=== PATIENT | female | born 1975 | race Caucasian/White ===

== ENCOUNTER 2017-03-28 09:46 | Inpatient (IN) ==
[2017-03-28 10:38] LABS: Basophils % 0.6 %; Eosinophils # 0.2 K/mcL (0.0-0.6); Hematocrit 42.5 % (35.3-44.9); Hemoglobin 14.4 g/dL (11.5-15.4); Immature Granulocytes % 0.3 % (0-4); Lymphocytes # 1.8 K/mcL (0.6-4.6); Lymphocytes % 28.6 %; Mean Corpuscular HGB Conc 33.9 g/dL (31.6-35.5); Mean Corpuscular Hemoglobin 32.5 pg (28.0-33.3); Mean Corpuscular Volume 95.9 fL (83.0-100.0); Mean Platelet Volume 8.9 fL (9.4-12.4); Monocytes # 0.5 K/mcL (0.0-1.3); Monocytes % 8.1 %; Neutrophils # 3.8 K/mcL (1.6-8.9); Platelet Count 310 K/mcL (140-400); Red Blood Count 4.43 M/mcL (3.82-4.97); Red Cell Distribution Width 12.2 % (11.5-14.5); Segmented Neutrophils % 59.4 %
--- NOTE | 2017-03-28 10:55 | Emergency Department Note ---
Disposition Clinical Impression: Hallucinations, Positive urine drug screen Disposition: Admitted As Inpatient Condition: Good Referrals: NONE,PCP [Primary Care Provider] - Forms: ED Satisfaction Letter Psych HPI - General Chief Complaint: ED Psychiatric Symptoms Stated Complaint: psych eval Time Seen by Provider: 03/28/17 09:48 Source: patient, EMS Mode of arrival: EMS Limitations: language barrier Nursing Notes Reviewed: Yes Vital Signs Reviewed: Yes - History of Present Illness HPI Narrative: 42-year-old female presents to the ER via EMS for psychiatric evaluation. I introduced myself to the patient. She really will not speak to me. She makes poor eye contact. Reviewing the triage note she recently had medication changes and wanted to come here today to be evaluated. She denies any suicidal or homicidal ideations when I question her. She does shake her head yes whenever I asked about auditory and visual hallucinations. She then would not look at me anymore or answer any questions during my history taking. Pt complaint: other Onset (ago): unknown Context: new medication(s) Alleged intoxication: No Associated Psychiatric Symptoms: other Self harm or harm to others: denies thoughts of harming self/others - Related Data Home Medications Medication Instructions Recorded Confirmed Albuterol Sulfate [Ventolin Hfa] 2 puff IH Q4-6H PRN 11/14/16 03/28/17 Fluticasone/Vilanterol [Breo 1 puff IH DAILY 11/14/16 03/28/17 Ellipta 100-25 Mcg INH] Allergies Allergy/AdvReac Type Severity Reaction Status Date / Time No Known Allergies Allergy Verified 02/21/17 20:45 All systems ED: reviewed and negative except as stated. Psychiatric: Reports: auditory hallucinations, visual hallucinations. Denies: anxiety, depression, suicidal thoughts, homicidal thoughts Past Medical History - Past Medical History Attestation: Yes The following information was validated with the patient. Source: old records reviewed Medical history: Reports: COPD, hyperlipidemia, hypertension Surgical history: Reports: no surgical history Psychiatric history: Reports: anxiety, depression [employer] DISP[employer]ER history: Reports: non-contributory - Social History Smoking Status: Current every day smoker Smokeless Tobacco Status: No Alcohol use: Reports: occasionally Drug use: Reports: marijuana Physical Exam - General Limitations: no limitations General appearance: alert, in no apparent distress - Head Head exam: atraumatic, normocephalic - Eye Eye exam: Present: normal appearance - ENT ENT exam: normal exam - Neck Neck exam: Present: normal inspection - Chest Chest inspection: Present: normal inspection, symmetric chest wall rise - Respiratory Respiratory exam: Present: normal lung sounds bilaterally - Cardiovascular Cardiovascular exam: Present: regular rate, normal rhythm, normal heart sounds - Abdominal Exam Abdominal exam: Present: soft, Non-Tender. Absent: tenderness - Extremities Exam Extremities exam: Present: normal inspection, full ROM - Expanded Upper Extremity Exam Shoulder exam: Present: normal inspection, full ROM Arm exam: Present: normal inspection, full ROM Elbow exam: Present: normal inspection, full ROM Forearm/Wrist exam: Present: normal inspection, full ROM Hand exam: Present: normal inspection, full ROM - Expanded Lower Extremity Exam Hip/Pelvis exam: Present: normal inspection, full ROM Upper leg exam: Present: normal inspection, full ROM Knee exam: Present: normal inspection, full ROM Lower leg exam: Present: normal inspection, full ROM Ankle exam: Present: normal inspection, full ROM Foot/toe exam: Present: normal inspection, full ROM - Neurological Exam Neurological exam: Present: alert - Psychiatric Psychiatric exam: Present: flat affect - Expanded Psychiatric Exam Expanded psych exam: Present: poor eye contact, refuses to answer - Skin Skin exam: Present: warm, dry Course Course Narrative: Patient seen and examined. She is uncooperative with my exam. We will get labs for psychiatric clearance for evaluation. - Reevaluation(s) Reevaluation #1: Patient evaluated by psychiatric service. They are concerned for potential benzo withdrawal. He recommended admission to the hospitalist service with transferred to [place] [id number] tomorrow. Vital Signs Temperature 98.5 F 03/28/17 09:49 Pulse Rate 86 03/28/17 09:49 Respiratory Rate 15 03/28/17 09:49 Blood Pressure 125/85 03/28/17 09:49 O2 Sat by Pulse Oximetry 96 03/28/17 09:49 Temperature 98.5 F 03/28/17 09:49 Pulse Rate 82 03/28/17 17:07 Respiratory Rate 18 03/28/17 12:19 Blood Pressure 108/77 03/28/17 17:07 O2 Sat by Pulse Oximetry 98 03/28/17 17:07 Oxygen Delivery Oxygen Delivery Room Air Psych - MDM Narrative Medical decision making narrative: 42-year-old female presents to the ER due to hallucinations. She will not speak to me in the room. She was evaluated by the psychiatric team here. They recommended medical admission due to concern for potential benzo withdrawal. She is accepted to the hospitalist service exam to be transferred tomorrow after observation. - Lab Data Lab results reviewed: Yes I reviewed the patient's lab results. Result diagrams: 03/28/17 10:30 03/28/17 10:30 Lab Results 03/28/17 03/28/17 03/28/17 Range/Units 10:30 10:30 11:59 WBC 6.4 (4.3-11.1) K/mcL RBC 4.43 (3.82-4.97) M/mcL Hgb 14.4 (11.5-15.4) g/dL Hct 42.5 (35.3-44.9) % MCV 95.9 (83.0-100.0) fL MCH 32.5 (28.0-33.3) pg MCHC 33.9 (31.6-35.5) g/dL RDW 12.2 (11.5-14.5) % Plt Count 310 (140-400) K/mcL MPV 8.9 L (9.4-12.4) fL Immature Gran % 0.3 (0-4) % Seg Neutrophils % 59.4 % Lymphocytes % 28.6 % Monocytes % 8.1 % Eosinophils % 3.0 % Basophils % 0.6 % Neutrophils # 3.8 (1.6-8.9) K/mcL Lymphocytes # 1.8 (0.6-4.6) K/mcL Monocytes # 0.5 (0.0-1.3) K/mcL Eosinophils # 0.2 (0.0-0.6) K/mcL Basophils # 0.0 (0.0-0.2) K/mcL Sodium 136 (136-145) mEq/L Potassium 4.0 (3.5-5.1) mEq/L Chloride 101 (98-107) mEq/L Carbon Dioxide 28 (23-29) mEq/L BUN 11 (6-20) mg/dL Creatinine 0.64 (0.60-1.20) mg/dL Est GFR ( Amer) > 60 (> 60) Est GFR (Non-Af Amer) > 60 (> 60) BUN/Creatinine Ratio 17 (6-26) Glucose 91 (70-105) mg/dL Calculated Osmolality 281 (280-300) Calcium 9.9 (8.6-10.3) mg/dL Urine Color Yellow (Yellow) Urine Clarity Clear (Clear) Urine pH 6.5 (5.0-8.0) pH Units Ur Specific [place] 1.017 (1.010-1.025) Urine Protein Negative (Neg-Trace) mg/dL Urine Glucose (UA) Normal (Normal) mg/dL Urine Ketones Negative (Negative) mg/dL Urine Blood Negative (Negative) Urine Nitrite Negative (Negative) Urine Bilirubin Negative (Negative) Urine Urobilinogen Normal (Normal) mg/dL Ur Leukocyte Esterase Negative (Negative) Salicylates < 5.0 L (15.0-30.0) mg/dL Urine Opiates Screen (Lzpktz=977) ng/mL Acetaminophen < 1.0 L (10-30) mcg/mL Ur Barbiturates Screen (Iirggi=568) ng/mL Ur Phencyclidine Scrn (Cutoff=25) ng/mL Ur Amphetamines Screen (Mntgws=8699) ng/mL U Benzodiazepines Scrn (Ajmewv=706) ng/mL Urine Cocaine Screen (Cutoff= 300) ng/mL U Marijuana (THC) Screen (Cutoff = 50) ng/mL Ethyl Alcohol < 10 (0-10) mg/dL 03/28/17 Range/Units 11:59 WBC (4.3-11.1) K/mcL RBC (3.82-4.97) M/mcL Hgb (11.5-15.4) g/dL Hct (35.3-44.9) % MCV (83.0-100.0) fL MCH (28.0-33.3) pg MCHC (31.6-35.5) g/dL RDW (11.5-14.5) % Plt Count (140-400) K/mcL MPV (9.4-12.4) fL Immature Gran % (0-4) % Seg Neutrophils % % Lymphocytes % % Monocytes % % Eosinophils % % Basophils % % Neutrophils # (1.6-8.9) K/mcL Lymphocytes # (0.6-4.6) K/mcL Monocytes # (0.0-1.3) K/mcL Eosinophils # (0.0-0.6) K/mcL Basophils # (0.0-0.2) K/mcL Sodium (136-145) mEq/L Potassium (3.5-5.1) mEq/L Chloride (98-107) mEq/L Carbon Dioxide (23-29) mEq/L BUN (6-20) mg/dL Creatinine (0.60-1.20) mg/dL Est GFR ( Amer) (> 60) Est GFR (Non-Af Amer) (> 60) BUN/Creatinine Ratio (6-26) Glucose (70-105) mg/dL Calculated Osmolality (280-300) Calcium (8.6-10.3) mg/dL Urine Color (Yellow) Urine Clarity (Clear) Urine pH (5.0-8.0) pH Units Ur Specific [place] (1.010-1.025) Urine Protein (Neg-Trace) mg/dL Urine Glucose (UA) (Normal) mg/dL Urine Ketones (Negative) mg/dL Urine Blood (Negative) Urine Nitrite (Negative) Urine Bilirubin (Negative) Urine Urobilinogen (Normal) mg/dL Ur Leukocyte Esterase (Negative) Salicylates (15.0-30.0) mg/dL Urine Opiates Screen Negative (Jyhoju=337) ng/mL Acetaminophen (10-30) mcg/mL Ur Barbiturates Screen Negative (Tssdgf=534) ng/mL Ur Phencyclidine Scrn Negative (Cutoff=25) ng/mL Ur Amphetamines Screen Negative (Xwugtc=5125) ng/mL U Benzodiazepines Scrn Positive H (Fqvfkk=002) ng/mL Urine Cocaine Screen Negative (Cutoff= 300) ng/mL U Marijuana (THC) Screen Negative (Cutoff = 50) ng/mL Ethyl Alcohol (0-10) mg/dL Psychiatric Medical Clearance - Medical Clearance Checklist Medical History: Anxiety (Inactive) No Social History Section defined Current Vitals: Last Vital Signs Temp 98.5 F 03/28/17 09:49 Pulse 82 03/28/17 17:07 Resp 18 03/28/17 12:19 BP 108/77 03/28/17 17:07 Pulse Ox 98 03/28/17 17:07 Psychiatric Lab Panel: Drug Levels and Toxicity 03/28/17 03/28/17 10:30 11:59 Urine Opiates Screen Negative Acetaminophen < 1.0 L Ur Barbiturates Screen Negative Ur Phencyclidine Scrn Negative Ur Amphetamines Screen Negative U Benzodiazepines Scrn Positive H Urine Cocaine Screen Negative U Marijuana (THC) Screen Negative Ethyl Alcohol < 10 Abnormal Labs: Abnormal lab results MPV 8.9 fL (9.4-12.4) L 03/28/17 10:30 Salicylates < 5.0 mg/dL (15.0-30.0) L 03/28/17 10:30 Acetaminophen < 1.0 mcg/mL (10-30) L 03/28/17 10:30 U Benzodiazepines Scrn Positive ng/mL (Qtlzlc=209) H 03/28/17 11:59 Statement of Medical Clearance: I have evaluated the patient, reviewed diagnostic information, and certify that the patient's medical condition is sufficiently stable that transfer to the psychiatric unit does not pose a significant risk of deterioration. S.B.AАлександр - Deangelo Situation: Demographics, MOA Background: Presenting Complaint, Relevant PMH, Meds, & Allergies Assessment: Course and respsone to treatment, Exam Concerns, Patient/Family Expectation, Pertinant Lab Results Recommendation: Barrier(s) to disposition, Recommendation based on pending studies, treatments, or consults S.B.Donis Report Given to: Shira Bright Repor Time: 17:40 Attestation Statement - Attestation Attestation: I examined this patient and my medical decision-making was reviewed with the Resident Physician. I agree with the documented findings, disposition and treatment plan as described except to the extent set forth below. Makes fair eye contact for me. Complains of visual hallucinations. [facility] Denies any thoughts of self- harm, no command hallucinations. Awaiting 1a eval.
[2017-03-28 10:56] LABS: Acetaminophen < 1.0 mcg/mL (10-30); Ethanol < 10 mg/dL (0-10); Salicylate < 5.0 mg/dL (15.0-30.0)
[2017-03-28 10:57] LABS: BUN/Creatinine Ratio 17 (6-26); Blood Urea Nitrogen 11 mg/dL (6-20); Calcium 9.9 mg/dL (8.6-10.3); Carbon Dioxide 28 mEq/L (23-29); Chloride 101 mEq/L (98-107); Glucose 91 mg/dL (70-105); Osmolality,Calculated 281 (280-300); Sodium 136 mEq/L (136-145); eGFR For African Americans > 60 (> 60); eGFR For Non-African Americans > 60 (> 60)
[2017-03-28 12:08] LABS: Bilirubin,Urine Negative (Negative); Blood,Urine Negative (Negative); Clarity,Urine Clear (Clear); Color,Urine Yellow (Yellow); Glucose,Urine (UA) Normal (Normal); Ketones,Urine Negative (Negative); Leukocyte Esterase,Urine Negative (Negative); Nitrite,Urine Negative (Negative); PH,Urine 6.5 pH Units (5.0-8.0); Protein,Urine Negative (Neg-Trace); Specific Gravity,Urine 1.017 (1.010-1.025); Urobilinogen,Urine Normal (Normal)
[2017-03-28 12:14] LABS: Amphetamine Screen,Urine Negative ng/mL (Cutoff=1000); Barbiturate Screen,Urine Negative ng/mL (Cutoff=200); Benzodiazepines Screen,Urine Positive ng/mL (Cutoff=200); Cannabinoid Screen,Urine Negative ng/mL (Cutoff = 50); Cocaine Screen,Urine Negative ng/mL (Cutoff= 300); Opiate Screen,Urine Negative ng/mL (Cutoff=300); Phencyclidine Screen,Urine Negative ng/mL (Cutoff=25)
--- NOTE | 2017-03-28 17:50 | Internal Med History&Physical ---
Date of Encounter: 03/28/17 Time of Encounter: 17:49 Assessment and Plan (1) Hallucinations Current visit: No Status: Acute Resolved now Continue sitter Appreciate Psych consult Transfer to [facility] in am if no withdrawal sx Code(s): R44.3 - Hallucinations, unspecified (2) Positive urine drug screen Current visit: Yes Status: Acute Positive UDS for BDZ and confession she's been taking borrowed pills Concern for BDZ withdrawal Code(s): R82.5 - Elevated urine levels of drugs, medicaments and biological substances (3) HTN (hypertension) Current visit: Yes Status: Acute Qualifiers: Hypertension type: essential hypertension Qualified Code(s): I10 - Essential (primary) hypertension Code(s): I10 - Essential (primary) hypertension (4) Anxiety and depression [facility] visit: Yes [facility] Internal Medicine - H&P: HPI Admitted From: Emergency Dept Plans for Post Hospital Care: Transfer Psych Facility History of present illness: 42 year old female patient with extensive psych history recently released from [facility] and brought to [facility] ER today with reported hallucinations. She was apparently just released days ago from [facility] for the same reason. She is hemodynamically stable, afebrile with a normal WBC and no signs of acute illness. She was evaluated by pyschiatry while still in the ER and per psychiatry recommendations will be transfered back to [facility] psych departme after a period of observation for potential BDZ withdrawal. Her UDS was negative accept for BDZ and she does not have an RX for BDZs. She denies SI /HI ideations. She was reportedly having hallucinations (visual/auditory ??) earlier but denies this now. Her Lab work is wnl and ETOH, Acetaminophen, Salyilate levels are normal. Her other comorbid conditions are severe depression and anxiety, essential HTN and dyslipidemia. Past Med Surg Social Fam HX - Past Medical History Medical history: COPD, hyperlipidemia, hypertension Psychiatric history: anxiety, depression - Past Surgical History Surgical History: no surgical history - Social History Smoking Status: Current every day smoker Smokeless Tobacco Status: No Alcohol use: occasionally Drug use: marijuana Internal Medicine - H&P: Meds Albuterol Sulfate [Ventolin Hfa] 2 puff IH Q4-6H PRN 11/14/16 [History] Fluticasone/Vilanterol [Breo Ellipta 100-25 Mcg INH] 1 puff IH DAILY 11/14/16 [ History] 3 Allergy/AdvReac Type Severity Reaction Status Date / Time No Known Allergies Allergy Verified 02/21/17 20:45 All Systems PM: A 10-system review of systems was performed and is negative for pertinent findings except as documented above in the HPI. - Constitutional Constitutional: no chills, no fatigue, no fever(s), no night sweats, no weakness - EENT Eyes: no change in vision, no discharge, no pain, no photophobia Ears: ear discharge, ear pain Nose, mouth and throat: no bleeding gums, no dry mouth, no dysphagia, no epistaxis, no nasal discharge, no neck pain, no sore throat - Cardiovascular Cardiovascular ROS IM: no chest pain, no diaphoresis, no dyspnea, no lightheadedness, no palpitations, no syncope - Respiratory Respiratory: no cough, no dyspnea, no wheezing, no excessive phlegm production - Gastrointestinal Gastrointestinal: no abdominal pain, no diarrhea, no hematemesis, no hematochezia, no loose stools, no melena, no nausea, no vomiting - Genitourinary Genitourinary: no change in urinary stream, no dysuria, no flank pain, no hematuria, no urinary hesitancy, no urinary incontinence, no urinary urgency - Musculoskeletal Musculoskeletal ROS IM: no muscle cramps, no muscle weakness, no neck pain, no numbness, no tingling - Integumentary Integumentary IM: no rash, no unusual bruising, no jaundice - Neurological Neurological ROS: no confusion, no convulsions, no focal weakness, no numbness, no tingling, no tremor(s) - Psychiatric Psychiatric: anxiety, hallucinations, no homicidal ideation, no suicidal ideation - Constitutional Vitals: Temp Pulse Resp BP Pulse Ox 98.5 F 82 18 108/77 98 03/28/17 09:49 03/28/17 17:07 03/28/17 12:19 03/28/17 17:07 03/28/17 17:07 General appearance: Present: A&O X 3, pleasant, answers questions appropriately - Head Head exam: Present: atraumatic, normocephalic - Eye Eye exam: Present: EOMI, PERRL, conjuntiva pink, sclera anicteric. Absent: periorbital swelling, periorbital tenderness, scleral icterus Pupils: Present: PERRL. Absent: unequal - ENT ENT exam: Present: mucous membranes moist, normal exam - Neck Neck exam general surgery: Present: full ROM, supple, trachea midline. Absent: lymphadenopathy, normal inspection, tenderness, nuchal rigidity, thyromegaly - Respiratory Respiratory exam: Present: CTAB. Absent: decreased breath sounds, respiratory distress, stridor, wheezes, tachypnea - GI/Abdominal GI/Abdominal exam: Present: normal bowel sounds. Absent: guarding, hepatomegaly , rebound, tenderness, no peritoneal signs - Neurological Exam Neurological exam: Present: CN II-XII intact, no focal deficits. Absent: facial droop Internal Med - H&P Results - Labs CBC & Chem 7: 03/28/17 10:30 03/28/17 10:30 Labs: Short CBC 03/28/17 Range/Units 10:30 WBC 6.4 (4.3-11.1) K/mcL Hgb 14.4 (11.5-15.4) g/dL Hct 42.5 (35.3-44.9) % Plt Count 310 (140-400) K/mcL Neutrophils # 3.8 (1.6-8.9) K/mcL BMP 03/28/17 10:30 Sodium 136 Potassium 4.0 Chloride 101 Carbon Dioxide 28 BUN 11 Creatinine 0.64 Glucose 91 Calcium 9.9 Urine 03/28/17 Range/Units 11:59 Urine Color Yellow (Yellow) Urine Clarity Clear (Clear) Urine pH 6.5 (5.0-8.0) pH Units Ur Specific [place] 1.017 (1.010-1.025) Urine Protein Negative (Neg-Trace) mg/dL Urine Glucose (UA) Normal (Normal) mg/dL
[2017-03-28] MEDS ORDERED: *HR* LORazepam 0.5 MG TABLET PO PRN (18:27)
[2017-03-28] MEDS: diazePAM 5 MG TABLET PO SCH (21:38)
[2017-03-28] MEDS ORDERED: Ketorolac 30 MG/ML VIAL IM ONE (22:57)
[2017-03-28] MEDS ORDERED: Ketorolac 30 MG/ML VIAL IVP ONE (23:35)
[2017-03-28] MEDS: Nicotine 14 MG PATCH.TD24 TD SCH (23:38)
[2017-03-29 04:24] LABS: Basophils % 0.5 %; Eosinophils # 0.3 K/mcL (0.0-0.6); Eosinophils % 5.1 %; Hematocrit 38.4 % (35.3-44.9); Immature Granulocytes % 0.5 % (0-4); Lymphocytes # 2.6 K/mcL (0.6-4.6); Lymphocytes % 40.3 %; Mean Corpuscular HGB Conc 33.9 g/dL (31.6-35.5); Mean Corpuscular Hemoglobin 32.4 pg (28.0-33.3); Mean Corpuscular Volume 95.8 fL (83.0-100.0); Mean Platelet Volume 9.3 fL (9.4-12.4); Monocytes # 0.8 K/mcL (0.0-1.3); Monocytes % 11.7 %; Neutrophils # 2.7 K/mcL (1.6-8.9); Platelet Count 282 K/mcL (140-400); Red Blood Count 4.01 M/mcL (3.82-4.97); Red Cell Distribution Width 12.3 % (11.5-14.5); Segmented Neutrophils % 41.9 %
[2017-03-29 04:53] LABS: BUN/Creatinine Ratio 26 (6-26); Blood Urea Nitrogen 14 mg/dL (6-20); Calcium 9.1 mg/dL (8.6-10.3); Carbon Dioxide 25 mEq/L (23-29); Chloride 106 mEq/L (98-107); Glucose 90 mg/dL (70-105); Osmolality,Calculated 286 (280-300); Potassium 3.9 mEq/L (3.5-5.1); Sodium 138 mEq/L (136-145); eGFR For African Americans > 60 (> 60); eGFR For Non-African Americans > 60 (> 60)
--- NOTE | 2017-03-29 10:01 | Internal Med Progress Note ---
Date of Encounter: 03/29/17 Time of Encounter: 09:00 - Assessment and plan (1) Anxiety and depression Current Visit: Yes Status: Acute Assessment and plan: per hx although details unclear. Patient says she follows with psychiatrist outpatient but is not on psychiatric medications. Patient apparently presented to ER via EMS for psychiatric evaluation however unclear where patient came from and what circumstances surround need for psychiatric evaluation. Patient reports active auditory hallucinations on my exam. No family available for collateral. Attended to reach next of kin with no success. Psych consulted (2) Benzodiazepine abuse Current Visit: Yes Status: Acute Assessment and plan: UDS positive for benzos; patient does not have active Rx. There was apparently concern for benzo withdrawal on arrival. Per chart review patient appears to be more stable; no agitation or seizure activity. Case was discussed with psychiatry in the ED and inpatient substance abuse rehabilitation was apparently recommended. Per social insurance administrator, will need official psychiatric recommendation. Continue scheduled Valium for now. Psychiatry consulted (3) DVT prophylaxis Current Visit: Yes Status: Acute Assessment and plan: heparin - Time Spent With Patient less than 15 minutes - Subjective Interval history: Seen and examined at bedside. Patient is new to me, information obtained from chart review and patient report although she is difficult to follow as she is rambling and going from one subject to the next. She does endorse hearing voices that is telling her to get back to her this all started to get things together. Denies thoughts of wanting to harm or kill herself. She tells me she does take Xanax at home. Says she follows with outpatient psychiatry been on medication. She gives me a number for Sabrina Winkler [phone] which is not active working number. Discussed case with social insurance administrator and patient will need psychiatric clearance before we can move forward with inpatient substance abuse - Constitutional Vitals: Temp Pulse Resp BP Pulse Ox 97.8 F 74 14 124/71 98 03/29/17 08:31 03/29/17 08:31 03/29/17 08:31 03/29/17 08:31 03/29/17 08:31 General appearance: Present: A&O X 2, pleasant, answers questions appropriately - Head Head exam: Present: atraumatic, normocephalic - Eye Eye exam: Present: PERRL, conjuntiva pink, sclera anicteric Pupils: Present: PERRL - Neck Neck exam general surgery: Present: supple, trachea midline. Absent: lymphadenopathy - Respiratory Respiratory exam: Present: CTAB. Absent: accessory muscle use, rales, rhonchi, wheezes - Cardiovascular Cardiovascular exam: Present: RRR, +S1, +S2. Absent: diastolic murmur, gallop, rubs, systolic murmur - GI/Abdominal GI/Abdominal exam: Present: normal bowel sounds, soft, no peritoneal signs. Absent: distended, tenderness - Extremities Exam Extremities exam: Present: warm, radial pulses palpable and symmetrical. Absent : calf tenderness, cyanotic, pedal edema - Neurological Exam Neurological exam: Present: CN II-XII intact, oriented X3, no focal deficits. Absent: pronater drift, facial droop, speech deficit - Psychiatric Psychiatric exam: Present: flat affect - Expanded Psychiatric Exam Focused psych exam: Present: delusional - Skin Skin exam: Present: dry, intact Internal Medicine: Result - Labs CBC & Chem 7: 03/29/17 03:15 03/29/17 03:15 Labs: Short CBC 03/29/17 Range/Units 03:15 WBC 6.4 (4.3-11.1) K/mcL Hgb 13.0 (11.5-15.4) g/dL Hct 38.4 (35.3-44.9) % Plt Count 282 (140-400) K/mcL Neutrophils # 2.7 (1.6-8.9) K/mcL BMP 03/29/17 03:15 Sodium 138 Potassium 3.9 Chloride 106 Carbon Dioxide 25 BUN 14 Creatinine 0.54 L Glucose 90 Calcium 9.1 Consult Discharge Plan - Plan Referrals: NONE,PCP [Primary Care Provider] -
[2017-03-29] MEDS: Nicotine 14 MG PATCH.TD24 TD SCH (10:19)
[2017-03-29] MEDS: diazePAM 5 MG TABLET PO SCH (10:19)
--- NOTE | 2017-03-29 14:15 | Consult Note ---
Date of Encounter: 03/29/17 Time of Encounter: 12:45 Assessment & Recommendation (1) Benzodiazepine withdrawal with perceptual disturbance Current visit: Yes Status: Acute (2) Benzodiazepine abuse Current visit: Yes Status: Acute (3) Alcohol dependence Current visit: Yes Status: Acute (4) Alcohol withdrawal delirium, acute, hyperactive Current visit: Yes Status: Acute Assessment & Recommendation: Rule out (5) Amphetamine abuse Current visit: Yes Status: Acute (6) Amphetamine withdrawal with perceptual disturbance Current visit: Yes Status: Acute Assessment & Recommendation: Rule out History of Present Illness Patient: new to practice Requesting Physician: Lisbeth Velasco CNP Reason for consult: Bizarre Behavour History of present illness: Ms. Dias is a 42 year old female patient was admitted from the emergency room to medical unit for probable benzodiazepine withdrawal. 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 After having a positive urine drug screen for benzodiazepines, she was admitted for possible withdrawal/detox. She was started on Valium 5 mg and has appeared to clear. I went to interview the patient. I asked her how she was feeling and she stated "Much better. I am able to get some things organized and figured out." She told me that she slept well last night and is better able to focus today, feels much calmer. She denies any suicidal homicidal ideation. She denies any auditory or visual hallucinations. She states that she has been having some issues with depression recently. She states that she does have stressor in her life. Her mother recently and she is going through a break up in a relationship plus the fact that she is homeless. She tells me that things could be worse. She now has a room at a homeless [facility] in [place]. She would like to get into a detox center if at all possible. She acknowledges to me that she since she moved to [place] she has been going down to [place] to get "diet pills". I said to her "like amphetamine diet pills?" and she said "yes". She takes them daily. (Patient's urine drug screen was negative for amphetamines so possible withdrawal.) Patient also told me that she drinks between 10 to 15 shots a day of alcohol, specifically at night, before she fell asleep. She told me the last day she drank was 4 days ago. She had a full 5th of Seagram's. Note that her alcohol level was undetectable/0. Probably secondary to the fact that she ran out of alcohol 3 days previously. (Probable Alcohol withdrawal) Patient had gone to [facility] nights ago for evaluation. She was looking to get into detox program which she understood [facility] had one. She denies any suicidal/homicidal ideation. She denies any auditory or visual hallucinations. She is not overly paranoid. She is not overtly psychotic. Her mood is overall stable; she is able to have a conversation and tells me she feels quite good. She knows she has problems with drugs and alcohol. Patient also told me that she has a history of being diagnosed with bipolar disorder. She previously has been on Prozac, BuSpar's and Seroquel (but that made her jumpy). She also takes Valium on a regular basis, at least 10 mg to 5 mg once a day. She states that she has Depakote for seizures. When I asked her if it was for her Bipolar D/O, she told me "No. It's to keep me from having siezures when I can' get the other things" (withdrawal seizures) She states that she is not been on medications for bipolar disorder for a long time. I question the diagnosis or bipolar as it is not apparent that she is been sober off benzodiazepines, alcohol and/or amphetamines for any extended period of time to actually make a diagnosis that is not 'substance induced'. Highly probable that is a mood and thought disorder secondary to the substance abuse. CC: Lisbeth Velasco CNP Past Med Surg Social Fam HX - Past Medical History Medical history: COPD, hyperlipidemia, hypertension - Past Psychiatric History Psychiatric history: Reports: bipolar, other Family psychiatric history: No Family History of Suicide: None - Past Surgical History Surgical History: no surgical history - Social History Smoking Status: Current every day smoker Smokeless Tobacco Status: No Alcohol use: heavy ("10-15 shots a night" Last 3-4 days ago. ) Drug use: marijuana, methamphetamine (Diet pills, "daily"), prescription drug abuse (Benzodiazepines) Occupational status: unemployed Current living situation: Homeless Activity Level: Independent ambulation Recent Out of Country Travel Within the Last 8 Weeks: No Exposure or Possible Exposure to Illness During Travel: No Medications & Allergies Albuterol Sulfate [Ventolin Hfa] 2 puff IH Q4-6H PRN 11/14/16 [History] Fluticasone/Vilanterol [Breo Ellipta 100-25 Mcg INH] 1 puff IH DAILY 11/14/16 [ History] 3 Allergy/AdvReac Type Severity Reaction Status Date / Time No Known Allergies Allergy Verified 02/21/17 20:45 Mental Status Exam Patient orientation: Yes Person, Yes Time, Yes Place, Yes Circumstance Level of alertness: Alert Patient appearance: Appropriate, Well Groomed, Well-nourished Behavior: calm Psychomotor activity: Normal Eye contact: Maintains Eye Contact Mood description: Anxious (mildy) Affect description: congruent with mood Speech pattern: Normal rate, Normal rhythm, Normal tone, Appropriate Speech volume: Normal Thought process: Loose Associations (mildy), Tangential (mildy) Thought content: Yes Intact Attention span: Capable of Focused Attention, Capable of Sustained Attention Memory description: Grossly Intact Patient reliability: Questionable Historian Intelligence estimate: Average Judgment: Fair Insight: Partial Results - Vital Signs Vital signs: Temp Pulse Resp BP Pulse Ox 97.8 F 84 14 118/70 99 03/29/17 12:28 03/29/17 12:28 03/29/17 12:28 03/29/17 12:28 03/29/17 12:28 - Labs Labs: Laboratory Last Values WBC 6.4 K/mcL (4.3-11.1) 03/29/17 03:15 RBC 4.01 M/mcL (3.82-4.97) 03/29/17 03:15 Hgb 13.0 g/dL (11.5-15.4) 03/29/17 03:15 Hct 38.4 % (35.3-44.9) 03/29/17 03:15 MCV 95.8 fL (83.0-100.0) 03/29/17 03:15 MCH 32.4 pg (28.0-33.3) 03/29/17 03:15 MCHC 33.9 g/dL (31.6-35.5) 03/29/17 03:15 RDW 12.3 % (11.5-14.5) 03/29/17 03:15 Plt Count 282 K/mcL (140-400) 03/29/17 03:15 MPV 9.3 fL (9.4-12.4) L 03/29/17 03:15 Immature Gran % 0.5 % (0-4) 03/29/17 03:15 Seg Neutrophils % 41.9 % 03/29/17 03:15 Lymphocytes % 40.3 % 03/29/17 03:15 Monocytes % 11.7 % 03/29/17 03:15 Eosinophils % 5.1 % 03/29/17 03:15 Basophils % 0.5 % 03/29/17 03:15 Neutrophils # 2.7 K/mcL (1.6-8.9) 03/29/17 03:15 Lymphocytes # 2.6 K/mcL (0.6-4.6) 03/29/17 03:15 Monocytes # 0.8 K/mcL (0.0-1.3) 03/29/17 03:15 Eosinophils # 0.3 K/mcL (0.0-0.6) 03/29/17 03:15 Basophils # 0.0 K/mcL (0.0-0.2) 03/29/17 03:15 Sodium 138 mEq/L (136-145) 03/29/17 03:15 Potassium 3.9 mEq/L (3.5-5.1) 03/29/17 03:15 Chloride 106 mEq/L (98-107) 03/29/17 03:15 Carbon Dioxide 25 mEq/L (23-29) 03/29/17 03:15 BUN 14 mg/dL (6-20) 03/29/17 03:15 Creatinine 0.54 mg/dL (0.60-1.20) L 03/29/17 03:15 Est GFR ( Amer) > 60 (> 60) 03/29/17 03:15 Est GFR (Non-Af Amer) > 60 (> 60) 03/29/17 03:15 BUN/Creatinine Ratio 26 (6-26) 03/29/17 03:15 Glucose 90 mg/dL (70-105) 03/29/17 03:15 Calculated Osmolality 286 (280-300) 03/29/17 03:15 Calcium 9.1 mg/dL (8.6-10.3) 03/29/17 03:15 Urine Color Yellow (Yellow) 03/28/17 11:59 Urine Clarity Clear (Clear) 03/28/17 11:59 Urine pH 6.5 pH Units (5.0-8.0) 03/28/17 11:59 Ur Specific [place] 1.017 (1.010-1.025) 03/28/17 11:59 Urine Protein Negative mg/dL (Neg-Trace) 03/28/17 11:59 Urine Glucose (UA) Normal mg/dL (Normal) 03/28/17 11:59 Urine Ketones Negative mg/dL (Negative) 03/28/17 11:59 Urine Blood Negative (Negative) 03/28/17 11:59 Urine Nitrite Negative (Negative) 03/28/17 11:59 Urine Bilirubin Negative (Negative) 03/28/17 11:59 Urine Urobilinogen Normal mg/dL (Normal) 03/28/17 11:59 Ur Leukocyte Esterase Negative (Negative) 03/28/17 11:59 Salicylates < 5.0 mg/dL (15.0-30.0) L 03/28/17 10:30 Urine Opiates Screen Negative ng/mL (Wdiyew=334) 03/28/17 11:59 Acetaminophen < 1.0 mcg/mL (10-30) L 03/28/17 10:30 Ur Barbiturates Screen Negative ng/mL (Gsagte=134) 03/28/17 11:59 Ur Phencyclidine Scrn Negative ng/mL (Cutoff=25) 03/28/17 11:59 Ur Amphetamines Screen Negative ng/mL (Coxjzp=6739) 03/28/17 11:59 U Benzodiazepines Scrn Positive ng/mL (Cmqjhd=277) H 03/28/17 11:59 Urine Cocaine Screen Negative ng/mL (Cutoff= 300) 03/28/17 11:59 U Marijuana (THC) Screen Negative ng/mL (Cutoff = 50) 03/28/17 11:59 Ethyl Alcohol < 10 mg/dL (0-10) 03/28/17 10:30 Consult Discharge Plan - Plan Referrals: NONE,PCP [Primary Care Provider] -
--- NOTE | 2017-03-29 17:41 | Discharge Summary ---
Date of Encounter: 03/29/17 Time of Encounter: 18:00 - Discharge Diagnosis (1) Anxiety and depression Priority: Primary Status: Acute Comments: per hx although details unclear. Patient says she follows with psychiatrist outpatient but is not on psychiatric medications. Patient apparently presented to ER via EMS for psychiatric evaluation however unclear where patient came from and what circumstances surrounded need for psychiatric evaluation. Evaluated by Psych who noted high probability that a mood and thought disorder is secondary to the substance abuse. Patient was deemed not to be an eminent threat to herself or others or psychiatric standpoint. Initial plan was to transfer to inpatient substance abuse program however patient's admission was denied. Discussed with Dr. Moore (psychiatry) who felt patient was stable for discharge with outpatient follow-up. Follow-up with outpatient psychiatry on as previously planned. (2) Benzodiazepine abuse Priority: Primary Status: Acute Comments: UDS positive for benzos; patient does not have active Rx. There was apparently concern for benzo withdrawal on arrival. Per chart review patient appears to be more stable; no agitation or seizure activity. Case was reportedly discussed with psychiatry ED physicians and inpatient substance abuse rehabilitation was recommended. Patient was denied and patient substance abuse admission as noted above. She was discharged home on 1 week of Valium. Follow- up with outpatient psychiatry on 04/04/17 as previously planned. - Discharge Medications Prescriptions: diazePAM [Valium] 2 mg PO BID 7 Days #14 tablet Home Medications: Albuterol Sulfate [Ventolin Hfa] 2 puff IH Q4-6H PRN 11/14/16 [History] Fluticasone/Vilanterol [Breo Ellipta 100-25 Mcg INH] 1 puff IH DAILY 11/14/16 [ History] diazePAM [Valium] 2 mg PO BID 7 Days #14 tablet 03/29/17 [Rx] Allergies/Adverse Reactions: 3 Allergy/AdvReac Type Severity Reaction Status Date / Time No Known Allergies Allergy Verified 02/21/17 20:45 Date of admission: 03/28/17 18:24 Primary care physician: PCP NONE Consults: 03/29/17 09:58 Consult to Psychiatry [CONS] Routine Consulting Provider: [facility] [place] Reason for Consult: Need psychiatric clearance for substance abuse placement Call Completed: Yes Discharging clinician: Lisbeth Velasco Anticipated date of discharge: 03/29/17 - Patient Status Disposition: Home, Self-Care Condition: Good Functional capacity at discharge: independent ambulation Overall status at discharge: patient is back to baseline - Discharge Instructions Instructions: Diazepam (By mouth), Benzodiazepine Abuse (DC) Follow Up With: NONE,PCP [Non-Partnered Physician] - Additional Instructions: Please keep your appointment with your outpatient psychiatrist on 04/04. He had been prescribed 1 week prescription of Valium. He will need to follow-up with your outpatient psychiatrist for further medication changes - Diet and Activity Activity: increase activity as tolerated Diet: advance to your usual diet Interval History: Seen and examined at bedside. Patient said she had a uneventful night and slept well. Says she feels more back to her normal self and feels safe discharging home today. She is aware that she was denied admission to [place] [id number] inpatient substance abuse program. Says she has follow-up with her outpatient psychiatry on 04/04/17. Denies thoughts of harming herself, killing herself or harming others. Other than when to go home she has no complaints. Hospital course: See assessment and plan for hospital course - Time Spent with Patient Total time spent providing and/or coordinating discharge services: - Constitutional Vitals: Temp Pulse Resp BP Pulse Ox 97.8 F 84 14 118/70 99 03/29/17 12:28 03/29/17 12:28 03/29/17 12:28 03/29/17 12:28 03/29/17 12:28 General appearance: Present: A&O X 2, pleasant, answers questions appropriately - Head Head exam: Present: atraumatic, normocephalic - Eye Eye exam: Present: PERRL, conjuntiva pink, sclera anicteric Pupils: Present: PERRL - Neck Neck exam general surgery: Present: supple, trachea midline. Absent: lymphadenopathy - Respiratory Respiratory exam: Present: CTAB. Absent: accessory muscle use, rales, rhonchi, wheezes - Cardiovascular Cardiovascular exam: Present: RRR, +S1, +S2. Absent: diastolic murmur, gallop, rubs, systolic murmur - GI/Abdominal GI/Abdominal exam: Present: normal bowel sounds, soft, no peritoneal signs. Absent: distended, tenderness - Extremities Exam Extremities exam: Present: warm, radial pulses palpable and symmetrical. Absent : calf tenderness, cyanotic, pedal edema - Neurological Exam Neurological exam: Present: CN II-XII intact, oriented X3, no focal deficits. Absent: pronater drift, facial droop, speech deficit - Skin Skin exam: Present: dry, intact
[2017-03-29] MEDS ORDERED: *HR* Heparin 5,000 UNIT/ML VIAL SQ SCH (18:00)
[2017-03-29 18:48] VITALS: BP 119/77
== END 2017-03-29 21:30 | disposition home or self-care (01) | DRG 776 ==
LOC: 3BNU 09:46 → EMEROO 09:46 → 3BNU 18:34
PROVIDERS: ADMIT Internal Medicine; ATTEND Registered Nurse